=== PATIENT | male | born 1935 | race American Indian/Alaskan Native ===

== ENCOUNTER 2017-06-23 06:04 | Day surgery (SDC) | payer MEDICARE ==
[~2017-06-23 06:04] MED LIST: ANCEF/STERILE WATER 2 GM/20 ML 2 GM/20 ML SYRINGE IV NR
[2017-06-23] MEDS ORDERED: NACL BACTERIOSTATIC INFILTRATI ONE (06:17)
[2017-06-23] MEDS ORDERED: SUBLIMAZE ONE (07:27)
[2017-06-23] MEDS ORDERED: DIPRIVAN 10 MG/ML IV ONE (07:28)
--- NOTE | 2017-06-23 07:34 | Anesthesia Day of Surgery ---
Anesthesia Day of Surgery - Day of Surgery Patient Examined: Yes Patient H&P Reviewed: Yes Patient is NPO: Yes
--- NOTE | 2017-06-23 07:40 | Anesthesia Consultation ---
Anesthesia Consult and Med Hx Date of service: 06/23/17 - Airway Anesthetic Teeth Evaluation: Caps (multiple gold ) ROM Head & Neck: Adequate Mental/Hyoid Distance: Adequate Mallampati Class: Class II Intubation Access Assessment: Probably Good - Pulmonary Exam CTA: Yes - Cardiac Exam Cardiac Exam: RRR - Pre-Operative Health Status ASA Pre-Surgery Classification: ASA3 Proposed Anesthetic Plan: General - Pulmonary Hx Smoking: No Hx Sleep Apnea: No (PAULA PRE SCREEN LOW RISK) - Cardiovascular System Hx Hypertension: No - Other Systems Hx Cancer: Yes (prostate CA) - Additional Comments Anesthesia Medical History Comments: HIV positive
[2017-06-23] MEDS ORDERED: ePHEDrine SULFATE ONE (07:55)
[2017-06-23] MEDS ORDERED: ZOFRAN IV PRN (08:00)
[2017-06-23] MEDS ORDERED: DILAUDID IV PRN (08:00)
[2017-06-23] MEDS ORDERED: ANCEF/STERILE WATER 2 GM/20 ML IV NR (08:00)
[2017-06-23] MEDS ORDERED: NACL 0.9% 1000 ML 1,000 ML IV SCH ×2 (08:00)
[2017-06-23] MEDS ORDERED: ZOFRAN ONE (08:03)
[2017-06-23] MEDS ORDERED: WATER FOR IRRIG STERILE IR ONE ×2 (08:10)
--- NOTE | 2017-06-23 08:12 | Post Operative Note ---
Date of procedure: 06/23/17 Pre-op diagnosis: urethral stricture Post-op diagnosis: same Findings: as above Procedure: cysto dviu Anesthesia: DAVION Surgeon: AZAEL GILL Estimated blood loss: none Pathology: none Condition: stable Disposition: PACU
--- NOTE | 2017-06-23 08:13 | Discharge Summary ---
Short Stay Discharge Plan Activity: other (no straining ) Weight Bearing Status: Full Weight Bearing Diet: regular, low salt Special Instructions: other ([facility] ) Durable Medical Equipment Needed Upon Discharge: other ([facility] ) Follow up with: JOSE MIGUEL BRENNER MD [Primary Care Provider] - 7 Days AZAEL GILL MD [Staff Physician] - 7 Days
--- NOTE | 2017-06-23 08:22 | Operative Report ---
PREOPERATIVE DIAGNOSIS: Urethral stricture post-radiation. POSTOPERATIVE DIAGNOSES: Urethral stricture post-radiation. Very short urethral stricture. PROCEDURE: Cystoscopy, cystogram, urethrogram, direct vision internal urethrotomy. SURGEON: Silvestre West M.D. ANESTHESIA: General. FINDINGS: The gentleman with decreased flow, now presents for treatment. He was found to have a very tight membranous urethral stricture. He presents for treatment. DESCRIPTION OF PROCEDURE: The patient brought to the operating room and placed on the operating table. Following induction of general anesthesia, placed in lithotomy position, prepped and draped in usual sterile fashion. Urethrogram under fluoroscopy showed the stricture with an open bladder neck. A wire coiled in the bladder under fluoroscopic guidance. Direct vision internal urethrotomy showed about a 1 cm stricture. This did not bleed. It was cut in the 12 o'clock position. The patient tolerated the procedure well and it opened up widely. We saw the two spacers and for the radiation placement on fluoroscopy. The patient tolerated the procedure well. There were no bladder lesions. Bladder was 2+ trabeculated, brought to recovery room with a 22 [place] in stable condition. JOB# [id number] GILDA/SHANDRA
[2017-06-23] MEDS ORDERED: XYLOCAINE MPF 2% ONE (08:30)
--- NOTE | 2017-06-23 09:32 | Fluoroscopy Report ---
FLUOROSCOPY CYSTOGRAM STATIC - OR INDICATION: Post traumatic urethral stricture. COMPARISON: None similar. FINDINGS: Fluoroscopy was provided by radiology during static cystogram by urology. 50 mL Omnipaque 300 utilized. 7 fluoroscopic images were captured. Fluoroscopy time 1 minute. Sales Support Administrator view suggests bladder tacking clips. Nonobstructive bowel gas pattern. A catheter advanced into the urinary bladder noted. Small amount of urinary bladder contrast surrounding the Thomas catheter balloon also seen. No reflux identified. CONCLUSION: Fluoroscopy guidance provided for intraoperative cystogram, as described. Please correlate with procedural report by Dr. West. Thank you for the opportunity to participate in this patient's care.
[2017-06-23 10:11] VITALS: BP 158/86
--- NOTE | 2017-06-23 11:01 | Post Anesthesia Evaluation ---
- Post Anesthesia Evaluation Patient Participated: Yes Airway Patent: Yes Stable Respiratory Function: Yes Nausea/Vomiting: No Temp > 96.8F: Yes Pain Manageable: Yes Adequeate Hydration: Yes Anesthesia Complications: No
== END 2017-06-23 10:13 | disposition home or self-care (01) ==
LOC: OR 06:04
PROVIDERS: ATTEND Urology
DX: N35.9 Urethral stricture, unspecified (principal); N32.89 Other specified disorders of bladder; N35.012 Post-traumatic membranous urethral stricture; I10 Essential (primary) hypertension; Z21 Asymptomatic human immunodeficiency virus [HIV] infection status; Z79.899 Other long term (current) drug therapy; Z98.890 Other specified postprocedural states; Z85.46 Personal history of malignant neoplasm of prostate
CPT/HCPCS: 52276; 74430; A4217; C1769; J2405; J2704; J3010; J7030; Q9967